=== PATIENT | female | born 1995 | race Caucasian/White ===

== ENCOUNTER 2021-12-17 09:14 | Emergency (ER) | payer OTHER ==
[2021-12-17] MEDS ORDERED: traMADol HCl 50 MG TAB ONE (09:49)
[2021-12-17] MEDS ORDERED: Bacitracin 1 PK ONE (09:52)
== END 2021-12-17 10:05 | disposition home or self-care (01) ==
LOC: BURERS 09:14
DX: S81.832A Puncture wound without foreign body, left lower leg, initial encounter (principal); W54.0XXA Bitten by dog, initial encounter; Z79.899 Other long term (current) drug therapy
CPT/HCPCS: 99282